=== PATIENT | female | born 1990 | race African-American/Black ===

== ENCOUNTER 2019-01-04 22:29 | Emergency (ER) | payer OTHER ==
[2019-01-05] MEDS: DEXAMETHASONE 10 MG/ML 1 ML INJ IM (04:15)
== END 2019-01-05 04:30 | disposition home or self-care (01) ==
LOC: FTE 22:29
DX: J40 Bronchitis, not specified as acute or chronic (principal)
CPT/HCPCS: 71045; 96372; 99284-25